=== PATIENT | male | born 1980 | race Caucasian/White ===

== ENCOUNTER 2017-07-29 02:59 | Inpatient (IN) | payer SELFPAY ==
[~2017-07-29] VITALS: Ht 170.2 cm; Wt 99.3 kg
[2017-07-29] MEDS ORDERED: KETOROLAC 60MG/2ML VIAL IM STA (07:42)
[2017-07-29] MEDS ORDERED: SODIUM CHLORIDE 0.9% 1,000 ML IV ONE (08:40)
[2017-07-29 08:50] LABS: BASOPHILS % 0.7 % (0.0-2.0); EOSINOPHILS % 1.1 % (0.0-5.0); HEMATOCRIT. 46.3 % (42.0-52.0); HEMOGLOBIN. 15.1 g/dL (14.0-18.0); LYMPHOCYTES % 12.8 % (20.0-50.0); MEAN CORPUSCULAR HEMOGLOBIN 27.7 pg (28.0-32.0); MEAN PLATELET VOLUME 7.8 fl (7.4-10.4); MONOCYTES % 11.6 % (2.0-8.0); NEUTROPHILS % 73.8 % (40.0-76.0); PLATELET 341 x1000/uL (130-400); RED BLOOD CELL COUNT 5.45 mill/uL (4.7-6.1); RED CELL DISTRIBUTION WIDTH 15.7 % (11.6-14.6)
[2017-07-29 09:01] LABS: KETONES URINE TRACE (NEGATIVE); LEUKOCYTE ESTERASE URINE 1+ (NEGATIVE); NITRITE URINE POSITIVE (NEGATIVE); OCCULT BLOOD URINE 3+ (NEGATIVE); PROTEIN URINE 2+ (NEGATIVE); SPECIFIC GRAVITY URINE 1.028 (1.005-1.030)
[2017-07-29 09:03] LABS: CLARITY URINE CLOUDY (CLEAR); COLOR URINE BROWN (YELLOW)
[2017-07-29 09:11] LABS: CARBON DIOXIDE 28 mEq/L (21-32); CHLORIDE 102 mEq/L (98-107); ETHANOL BLOOD < 10 mg/dL
[2017-07-29] MEDS ORDERED: CEFTRIAXONE 1 G PREMIX 50 ML IV ONE (09:30)
[2017-07-29 10:05] LABS: *AMPHETAMINES SCREEN URINE PRESUMTIVE POSITIVE (NEGATIVE); *BARBITURATES SCREEN URINE NEGATIVE (NEGATIVE); *BENZODIAZEPINES SCREEN URINE PRESUMTIVE POSITIVE (NEGATIVE); *COCAINE SCREEN URINE PRESUMTIVE POSITIVE (NEGATIVE); CANNABINOID URINE SCREEN NEGATIVE (NEGATIVE); METHADONE URINE SCREEN NEGATIVE (NEGATIVE); OPIATES URINE SCREEN NEGATIVE (NEGATIVE); PHENCYCLIDINE URINE SCREEN NEGATIVE (NEGATIVE)
[2017-07-29 11:30] VITALS: BP 113/60
[2017-07-29] MEDS ORDERED: GUAIFENESIN 200MG/10ML SUGAR FREE UDC PO PRN (11:45)
[2017-07-29] MEDS ORDERED: ONDANSETRON HCL 4MG/2ML VIAL IV PRN (11:45)
[2017-07-29] MEDS ORDERED: DOCUSATE SODIUM 100MG CAPSULE PO PRN (11:45)
[2017-07-29] MEDS ORDERED: NITROGLYCERIN 0.4MG TABLET SL SL PRN (11:45)
[2017-07-29] MEDS ORDERED: NA PHOS,M-B/NA PHOS,DI-BA ENEMA 118ML PR PRN (11:45)
[2017-07-29] MEDS ORDERED: KETOROLAC 30MG/ML VIAL IV PRN (11:45)
[2017-07-29] MEDS ORDERED: MAGNESIUM/ALUMINUM HYDROXIDE/SIMETHICONE 30ML UDC PO PRN (11:45)
[2017-07-29] MEDS ORDERED: CLONIDINE 0.1MG TABLET PO PRN (11:45)
[2017-07-29] MEDS ORDERED: DIPHENHYDRAMINE 50MG/ML VIAL IV PRN (11:45)
[2017-07-29] MEDS ORDERED: ZOLPIDEM TARTRATE 5MG TABLET PO PRN (11:45)
[2017-07-29] MEDS ORDERED: CEFTRIAXONE 1 G PREMIX 50 ML IV SCH (11:45)
[2017-07-29] MEDS ORDERED: LORAZEPAM 0.5MG TABLET PO PRN (11:45)
[2017-07-29] MEDS ORDERED: ACETAMINOPHEN 325MG TABLET PO PRN (11:45)
[2017-07-29] MEDS ORDERED: IPRATROPIUM/ALBUTEROL 0.5-3(2.5)MG/3ML NEB INH PRN (11:45)
[2017-07-29] MEDS ORDERED: SODIUM CHLORIDE 0.9% 1,000 ML IV SCH (11:50)
[2017-07-29 12:00] VITALS: BP 113/60
[2017-07-29 16:00] VITALS: BP 139/82
[2017-07-29 16:40] LABS: CREATINE KINASE 55600 IU/L (39-308)
[2017-07-30] MEDS ORDERED: PANTOPRAZOLE SODIUM 40 MG/VIAL IV SCH (09:00)
[2017-07-30] MEDS ORDERED: CEFTRIAXONE 1 G PREMIX 50 ML IV SCH (10:00)
== END 2017-07-29 19:10 | disposition left against medical advice (07) | DRG 351 ==
LOC: ER 03:07 → ENRESERV 09:52 → 6EST 10:34 → EDBEDREQTM 10:44 → EDBEDREQ 10:44
PROVIDERS: ADMIT Internal Medicine; ATTEND Internal Medicine
DX: M62.82 Rhabdomyolysis (principal); N39.0 Urinary tract infection, site not specified; Z87.442 Personal history of urinary calculi; F32.9 Major depressive disorder, single episode, unspecified; F17.200 Nicotine dependence, unspecified, uncomplicated; F41.9 Anxiety disorder, unspecified; R74.0 Nonspecific elevation of levels of transaminase and lactic acid dehydrogenase [LDH]; F19.10 Other psychoactive substance abuse, uncomplicated; T50.995A Adverse effect of other drugs, medicaments and biological substances, initial encounter; Y92.89 Other specified places as the place of occurrence of the external cause
CPT/HCPCS: 36415; 76770; 80053; 80305; 81001; 82550; 83690; 85025; 87040; 87086; 93970; 96361; 96365; 96372; 99285; A6261; G0482; J0696; J1885; J7030; J7040